=== PATIENT | female | born 1980 | race Caucasian/White ===

== ENCOUNTER 2016-09-03 23:07 | Emergency (ER) | payer BC ==
--- NOTE | 2016-09-04 00:56 | ER Document Report ---
ED Hip Pain/Injury - General Chief Complaint: Hip Pain Stated Complaint: FALL/RIGHT HIP PAIN Time seen by provider: 00:50 Notes: Patient is a 36-year-old female that comes emergency department for chief complaint of fall injury and pain to her right hip. 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 Patient states that she slipped on dog urine and fell onto the right hip and knee. She denies any knee pain, states all her pain is in her hip on the right side. She denies any back pain, denies head injury. TRAVEL OUTSIDE OF THE [place] IN LAST 30 DAYS: No - Related Data Allergies/Adverse Reactions: No Known Allergies Allergy (Unverified 09/03/16 23:11) Past Medical History - General Information source: Patient - Social History Smoking Status: Never Smoker Chew tobacco use (# tins/day): No Frequency of alcohol use: Rare Drug Abuse: None Lives with: Family Family History: Reviewed & Not Pertinent Patient has suicidal ideation: No Patient has homicidal ideation: No - Medical History Medical History: Negative Renal/ Medical History: Denies: Hx Peritoneal Dialysis Past Surgical History: Reports: Hx Nose Surgery - septorhinoplasty, Hx Oral Surgery - jaw sx, Hx Orthopedic Surgery - guillermo hip sx, implant right eyelid, jaw surery - Immunizations Immunizations up to date: Yes Hx Diphtheria, Pertussis, Tetanus Vaccination: Yes Review of Systems - Review of Systems Constitutional: No symptoms reported EENT: No symptoms reported Cardiovascular: No symptoms reported Respiratory: No symptoms reported Gastrointestinal: No symptoms reported Genitourinary: No symptoms reported Female Genitourinary: See HPI Musculoskeletal: See HPI Skin: No symptoms reported Hematologic/Lymphatic: No symptoms reported Neurological/Psychological: No symptoms reported Physical Exam - Vital signs Vitals: Temp Pulse Resp BP Pulse Ox 98.5 F 83 16 118/81 97 09/03/16 23:16 09/03/16 23:16 09/03/16 23:16 09/03/16 23:16 09/03/16 23:16 Interpretation: Normal - General General appearance: Appears well, Alert In distress: None - HEENT Head: Normocephalic, Atraumatic Eyes: Normal Pupils: PERRL - Respiratory Respiratory status: No respiratory distress Chest status: Nontender Breath sounds: Normal Chest palpation: Normal - Cardiovascular Rhythm: Regular Heart sounds: Normal auscultation Murmur: No - Abdominal Inspection: Normal Distension: No distension Bowel sounds: Normal Tenderness: Nontender Organomegaly: No organomegaly - Back Back: Normal, Nontender. No: Tender, Vertebra tenderness - Extremities General upper extremity: Normal inspection, Nontender, Normal color, Normal ROM , Normal temperature General lower extremity: Other - There is mild tenderness over the right femoral bursa/trochanter area, no noted ecchymosis or soft tissue swelling, range of motion of the hip is intact but with slight pain, very mild tenderness in the groin area at the hip joint on the right. Unremarkable knee exam, normal distal neurovascular exam, normal lower extremity exam otherwise. - Neurological Neuro grossly intact: Yes Cognition: Normal Orientation: AAOx4 Petra Coma Scale Eye Opening: Spontaneous Petra Coma Scale Verbal: Oriented Petra Coma Scale Motor: Obeys Commands Petra Coma Scale Total: 15 Speech: Normal Motor strength normal: LUE, RUE, LLE, RLE Sensory: Normal - Psychological Associated symptoms: Normal affect, Normal mood - Skin Skin Temperature: Warm Skin Moisture: Dry Skin Color: Normal Course - Re-evaluation Re-evalutation: HCG negative x-ray normal, exam shows mild pain, patient has pain medicine at home, patient are has crutches. Patient very satisfied with workup, states she will follow-up with her surgeon - Vital Signs Vital signs: Temp Pulse Resp BP Pulse Ox 98.7 F 77 16 97/67 L 98 09/04/16 02:15 09/04/16 02:15 09/04/16 02:15 09/04/16 02:15 09/04/16 02:15 - Diagnostic Test Radiology reviewed: Image reviewed, Reports reviewed Discharge - Discharge Clinical Impression: Fall Qualifiers: Encounter type: initial encounter Qualified Code(s): W19.XXXA - Unspecified fall, initial encounter Hip pain Qualifiers: Laterality: right Qualified Code(s): M25.551 - Pain in right hip Condition: Stable Disposition: HOME, SELF-CARE Additional Instructions: There were no radiographic findings of acute injury. This appears to be soft tissue only. Ice the area regularly especially over the next 24 hours. Rest. Take your pain medication. Follow-up with your provider. Return to the emergency department for any concerning or worsening symptoms including severe swelling, severe pain, numbness, etc.
[2016-09-04 02:23] VITALS: BP 97/67
== END 2016-09-04 02:15 | disposition home or self-care (01) ==
LOC: ER 23:07
DX: M25.551 Pain in right hip (principal); W01.0XXA Fall on same level from slipping, tripping and stumbling without subsequent striking against object, initial encounter; Z98.890 Other specified postprocedural states; Z87.798 Personal history of other (corrected) congenital malformations
CPT/HCPCS: 81025; 99283

== ENCOUNTER 2016-11-30 09:14 | Emergency (ER) | payer BC, OTHER ==
[2016-11-30] MEDS ORDERED: NORMAL SALINE 1000 ML 1,000 ML IV ONE (09:28)
[2016-11-30 09:46] LABS: ABSOLUTE LYMPHOCYTES (AUTO) 1.2 10^3/uL (0.5-4.7); ABSOLUTE MONOCYTES (AUTO) 0.4 10^3/uL (0.1-1.4); ABSOLUTE NEUT (AUTO) 2.9 10^3/uL (1.7-8.2); BASOPHILS % (AUTO) 0.8 % (0-2); EOSINOPHILS % (AUTO) 0.9 % (0-6); HEMATOCRIT 40.5 % (36.0-47.0); HEMOGLOBIN 13.9 g/dL (12.0-15.5); HGB HCT DIFFERENCE 1.2; LYMPHOCYTES % (AUTO) 25.4 % (13-45); MEAN CORPUSCULAR HEMOGLOBIN 30.4 pg (27.0-33.4); MEAN CORPUSCULAR HGB CONC 34.4 g/dL (32.0-36.0); MEAN CORPUSCULAR VOLUME 89 fl (80-97); RED BLOOD COUNT 4.57 10^6/uL (3.72-5.28); RED CELL DISTRIBUTION WIDTH 12.5 % (11.5-14.0); SEGMENTED NEUTROPHILS % (AUTO) 63.9 % (42-78); WHITE BLOOD COUNT 4.5 10^3/uL (4.0-10.5)
[2016-11-30] MEDS ORDERED: MORPHINE SULFATE 10 MG/ML INJ IV ONE (09:47)
[2016-11-30] MEDS ORDERED: ONDANSETRON HCL INJ/PF 4 MG/2 ML SDV IV ONE (09:47)
[2016-11-30 09:59] LABS: ANION GAP 11 (5-19); BLOOD UREA NITROGEN 13 mg/dL (7-20); CALCIUM 9.2 mg/dL (8.4-10.2); CARBON DIOXIDE 24 mmol/L (22-30); CHLORIDE 107 mmol/L (98-107); CREATININE RESULT 0.64 mg/dL (0.52-1.25); GLUCOSE 105 mg/dL (75-110); POTASSIUM 4.3 mmol/L (3.6-5.0); SODIUM 142.2 mmol/L (137-145)
[2016-11-30] MEDS ORDERED: ACETAMINOPHEN 325 MG TABLET ONE (10:35)
[2016-11-30] MEDS ORDERED: LIDOCAINE 5% (700 MG) TRANSDERMAL ADH..PATCH TP ONE (12:06)
[2016-11-30] MEDS ORDERED: KETOROLAC TROMETHAMINE INJ/PF 30 MG/1 ML SDV IV ONE (12:06)
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
[2016-11-30 13:43] VITALS: BP 108/82
== END 2016-11-30 13:42 | disposition home or self-care (01) ==
LOC: ER 09:14
DX: S40.812A Abrasion of left upper arm, initial encounter (principal); S40.811A Abrasion of right upper arm, initial encounter; M25.511 Pain in right shoulder; M54.2 Cervicalgia; M25.532 Pain in left wrist; V87.7XXA Person injured in collision between other specified motor vehicles (traffic), initial encounter
CPT/HCPCS: 99285; 96361; 96374; 96375; 36415; 84703; 85025; 80048; 73080; 73030; 73110; 70450; 71260; 72125; 74177; J1885; J2405; J7030